=== PATIENT | female | born 1965 | race Caucasian/White ===

== ENCOUNTER 2016-10-26 13:28 | Emergency (ER) | payer BC ==
[2016-10-26 15:09] VITALS: BP 115/66
--- NOTE | 2016-10-26 15:58 | UC ---
Throat Pain/Nasal Giovanny HPI - HPI Summary HPI Summary: LAST WEEK HAD SINUS SYMPTOMS. FEVER 100F. TOOK BACTRIM FOR SEVEN DAYS. DID NOT FEEL BETTER. HOWEVER, ON THURSDAY BEGAN DEVELOPING MUSCLE ACES AND FATIGUE. NO COUGH. FEVER RESOLVED. - History of Current Complaint Chief Complaint: UCRespiratory Stated Complaint: FEVER Time Seen by Provider: 10/26/16 15:28 Hx Obtained From: Patient Hx Last Menstrual Period: 05/07/13 ?: No Onset/Duration: Sudden Onset, Lasting Days Severity: Mild Cough: Nonproductive Associated Signs & Symptoms: Positive: Sinus Discomfort, Nasal Discharge, Fever - Epiglottits Risk Factors Epiglottis Risk Factors: Negative - Allergies/Home Medications Allergies/Adverse Reactions: Allergies Allergy/AdvReac Type Severity Reaction Status Date / Time Penicillins Allergy Unknown Verified 10/26/16 14:57 Reaction Details Home Medications: Home Medications Cyclobenzaprine TAB* [Flexeril TAB*] 5 mg PO TID PRN 10/26/16 [History Confirmed 10/26/16] Ibuprofen [Advil] 600 mg PO Q6H PRN 10/26/16 [History Confirmed 10/26/16] Lisinopril & Hydrochlorothiazi [Zestoretic 20-12.5 mg-] 1 tab PO DAILY 10/26/16 [History Confirmed 10/26/16] Sulfamethox/Trimethoprim DS* [Bactrim DS 800/160 TAB*] 1 tab PO BID 10/26/16 [ History Confirmed 10/26/16] PMH/Surg Hx/FS Hx/Imm Hx Previously Healthy: Yes Endocrine History Of: Denies: Diabetes, Thyroid Disease Cardiovascular History Of: Reports: Hypertension Denies: Cardiac Disorders Respiratory History Of: Denies: Asthma - Surgical History Surgical History: None - Family History Known Family History: Negative: Respiratory Disease - Social History Occupation: Employed Full-time Alcohol Use: None Substance Use Type: None Smoking Status (MU): Former Smoker When Did the Patient Quit Smoking/Using Tobacco: 2006 - Immunization History Most Recent Influenza Vaccination: 2016 Review of Systems Constitutional: Fever - RESOLVED, Chills, Fatigue Skin: Negative Eyes: Negative ENT: Nasal Discharge Respiratory: Cough - RESOLVED Cardiovascular: Negative Gastrointestinal: Negative Genitourinary: Negative Motor: Negative Neurovascular: Negative Musculoskeletal: Myalgia Neurological: Negative Psychological: Negative All Other Systems Reviewed And Are Negative: Yes Physical Exam Triage Information Reviewed: Yes Appearance: Well-Appearing, No Pain Distress, Well-Nourished Vital Signs: Initial Vital Signs Temp 98.8 F 10/26/16 15:02 Pulse 80 10/26/16 15:02 Resp 20 10/26/16 15:02 BP 115/66 10/26/16 15:02 Pulse Ox 100 10/26/16 15:02 Vital Signs Reviewed: Yes Eye Exam: Normal ENT Exam: Normal ENT: Positive: Normal ENT inspection, Hearing grossly normal, Pharynx normal, TMs normal Dental Exam: Normal Neck exam: Normal Respiratory: Positive: Chest non-tender, Normal breath sounds, No respiratory distress, No accessory muscle use, Respiratory distress, Wheezing - SCANT Cardiovascular Exam: Normal Cardiovascular: Positive: RRR, No Murmur, Pulses Normal Abdominal Exam: Normal Abdomen Description: Positive: Nontender, No Organomegaly Musculoskeletal Exam: Normal Musculoskeletal: Positive: Strength Intact, ROM Intact Neurological Exam: Normal Psychological Exam: Normal Psychological: Positive: Normal Response To Family Skin Exam: Normal Throat Pain/Nasal Course/Dx - Differential Dx/Diagnosis Differential Diagnosis/HQI/PQRI: Influenza, Pharyngitis, Sinusitis, URI Provider Diagnoses: INFLUENZA. UPPER RESPIRATORY INFECTION Discharge - Discharge Plan Condition: Stable Disposition: HOME Patient Education Materials: Influenza (ED), Viral Syndrome (ED) Forms: *Work Release Referrals: Eladia Spears NP [Primary Care Provider] -
== END 2016-10-26 16:22 | disposition home or self-care (01) ==
LOC: UCCORT 13:28
DX: J11.1 Influenza due to unidentified influenza virus with other respiratory manifestations (principal); I10 Essential (primary) hypertension; Z11.4 Encounter for screening for human immunodeficiency virus [HIV]; Z88.0 Allergy status to penicillin; Z87.891 Personal history of nicotine dependence
CPT/HCPCS: 36415; 86703; 99201; G0463